=== PATIENT | male | born 1955 | race Caucasian/White ===

== ENCOUNTER 2017-08-29 00:35 | Inpatient (IN) | payer OTHER ==
[~2017-08-29] VITALS: Ht 177.8 cm; Wt 95.1 kg
[2017-08-29] VITALS (10 sets, daily range): BP systolic 114–131; BP diastolic 25–81; PULSE 84–101; RESP 16–20; TEMP 97.5–98.4; O2SAT 95–99
[~2017-08-29 00:35] MED LIST: IBUP-232 PO; LORA-361 PO; MULT1TAB85 PO
[2017-08-29 01:25] LABS: AUTOMATED NEUTROPHIL # 7.3 TH/MM3 (1.8-7.7); BASOPHIL % 0.2 % (0.0-2.0); EOSINOPHIL # 0.1 TH/MM3 (0-0.4); EOSINOPHIL % 1.5 % (0.0-4.0); HEMATOCRIT 48.8 % (39.0-51.0); HEMO FLAGS DIFF FINAL; LYMPH % 13.3 % (9.0-44.0); LYMPHOCYTE # 1.2 TH/MM3 (1.0-4.8); MEAN CELL VOLUME 95.1 FL (80.0-100.0); MEAN CORPUSCULAR HGB CONC 34.7 % (32.0-36.0); MONO % 6.6 % (0.0-8.0); NEUT % 78.4 % (16.0-70.0); PLATELET COUNT 179 TH/MM3 (150-450); RED BLOOD COUNT 5.13 MIL/MM3 (4.50-5.90); RED CELL DISTRIBUTION WIDTH 12.4 % (11.6-17.2); WHITE BLOOD COUNT 9.3 TH/MM3 (4.0-11.0)
--- NOTE | 2017-08-29 01:35 | PD ---
HPI Chief Complaint: Abdominal Pain Time Seen by Provider: 01:00 Travel History International Travel<30 days: No Contact w/Intl Traveler<30days: No Traveled to known affect area: No History of Present Illness HPI Patient is a 62-year-old male with a history of diverticulitis 2000 he had a perforated viscus with diverticulitis had a colostomy with a takedown 5 months later patient then had a hernia at the incision site related to a mesh hernia repair patient got a allergic reaction to the fascia was removed and he was without a mesh for years and then had a recent mesh put in 2001 now is coming in 1 day woke up this morning with dull aching pain hypoumbilical area and left lateral he ignored it he did not take any medication to make it at her or worse he has no daily meds he does not have any allergies to medications throughout the day he said he ate less than normal no vomit or diarrhea no fever no sick contacts since the surgeries for his diverticulitis and colostomy he has not had any problems for over 15 years PFSH Past Medical History Medical History: Denies Significant Hx Diminished Hearing: No Past Surgical History Abdominal Surgery: Yes (COLECTOMY/ colostomy then reversed/ hernia with mesh and removal) Social History Alcohol Use: Yes (OCCASIONALLY) Tobacco Use: No Substance Use: No (PAST MARIJUANA) Allergies-Medications (Allergen,Severity, Reaction): Coded Allergies: No Known Allergies (Unverified Allergy, Unknown, 08/29/17) Reported Meds & Prescriptions Reported Meds & Active Scripts Active No Active Prescriptions or Reported Medications Review of Systems Except as stated in HPI: all other systems reviewed are Neg Gastrointestinal: Positive: Abdominal Pain, No: Vomiting, Diarrhea Physical Exam Narrative GENERAL: Nontoxic-appearing awake alert cooperative SKIN: Focused skin assessment warm/dry. HEAD: Atraumatic. Normocephalic. EYES: Pupils equal and round. No scleral icterus. No injection or drainage. ENT: No nasal bleeding or discharge. Mucous membranes pink and moist. NECK: Trachea midline. No JVD. CARDIOVASCULAR: Regular rate and rhythm. No murmur appreciated. RESPIRATORY: No accessory muscle use. Clear to auscultation. Breath sounds equal bilaterally. GASTROINTESTINAL: Abdomen has midline incision scar well-healed around the periumbilical area soft + periumbilical and left lower abdominal -tender to palpation, nondistended. Hepatic and splenic margins not palpable. MUSCULOSKELETAL: No obvious deformities. No clubbing. No cyanosis. No edema. NEUROLOGICAL: Awake and alert. No obvious cranial nerve deficits. Motor grossly within normal limits. Normal speech. PSYCHIATRIC: Appropriate mood and affect; insight and judgment normal. RE-EXAM still dull ache to Left lower abdominal area which correlates with the CT finding area of dilated loops of bowel and question of early obstruction Data Data Last Documented VS Vital Signs Date Time Temp Pulse Resp B/P (MAP) Pulse Ox O2 Delivery O2 Flow Rate FiO2 08/29/17 04:30 84 16 126/81 (96) 95 Room Air 08/29/17 00:41 97.6 Orders Orders Complete Blood Count With Diff (08/29/17 00:57) Comprehensive Metabolic Panel (08/29/17 00:57) Urinalysis - C+S If Indicated (08/29/17 00:57) Iv Access Insert/Monitor (08/29/17 00:57) Lipase (08/29/17 01:00) Ct Abd/Pel W Iv Contrast(Rout) (08/29/17 ) Pantoprazole Inj (Protonix Inj) (08/29/17 01:45) Ondansetron Inj (Zofran Inj) (08/29/17 01:45) Oral Contrast - Adult (08/29/17 01:33) Diatrizoate Liq ( Gastroview Liq) (08/29/17 01:51) Iohexol 350 Inj (Omnipaque 350 Inj) (08/29/17 03:21) Dext 5%-Nacl 0.45% 1000 Ml Inj (D5w-1/2 (08/29/17 04:30) Morphine Inj (Morphine Inj) (08/29/17 05:00) Ondansetron Inj (Zofran Inj) (08/29/17 05:15) Sodium Chlor 0.9% 1000 Ml Inj (Ns 1000 M (08/29/17 05:15) Admit To Inpatient (08/29/17 ) Vital Signs (Adult) Q4H (08/29/17 05:19) Activity Oob With Assistance (08/29/17 05:19) [employer] / Telemetry .CONTINUOUS (08/29/17 05:19) Intake + Output COLLIN.QSHIFT (08/29/17 05:19) Diet Npo (08/29/17 Breakfast) Sodium Chlor 0.9% 1000 Ml Inj (Ns 1000 M (08/29/17 05:19) Sodium Chloride 0.9% Flush (Ns Flush) (08/29/17 05:30) Sodium Chloride 0.9% Flush (Ns Flush) (08/29/17 09:00) Ondansetron Inj (Zofran Inj) (08/29/17 05:30) Comprehensive Metabolic Panel (08/30/17 06:00) Complete Blood Count With Diff (08/30/17 06:00) Naloxone Inj (Narcan Inj) (08/29/17 05:30) Inpatient Certification (08/29/17 ) Admit Order (Ed Use Only) (08/29/17 05:21) Morphine Inj (Morphine Inj) (08/29/17 05:30) Labs Laboratory Tests Test 08/29/17 01:00 08/29/17 04:00 White Blood Count 9.3 TH/MM3 Red Blood Count 5.13 MIL/MM3 Hemoglobin 16.9 GM/DL Hematocrit 48.8 % Mean Corpuscular Volume 95.1 FL Mean Corpuscular Hemoglobin 33.0 PG Mean Corpuscular Hemoglobin Concent 34.7 % Red Cell Distribution Width 12.4 % Platelet Count 179 TH/MM3 Mean Platelet Volume 6.4 FL Neutrophils (%) (Auto) 78.4 % Lymphocytes (%) (Auto) 13.3 % Monocytes (%) (Auto) 6.6 % Eosinophils (%) (Auto) 1.5 % Basophils (%) (Auto) 0.2 % Neutrophils # (Auto) 7.3 TH/MM3 Lymphocytes # (Auto) 1.2 TH/MM3 Monocytes # (Auto) 0.6 TH/MM3 Eosinophils # (Auto) 0.1 TH/MM3 Basophils # (Auto) 0.0 TH/MM3 CBC Comment DIFF FINAL Differential Comment Blood Urea Nitrogen 17 MG/DL Creatinine 1.07 MG/DL Random Glucose 108 MG/DL Total Protein 7.4 GM/DL Albumin 3.9 GM/DL Calcium Level 8.7 MG/DL Alkaline Phosphatase 78 U/L Aspartate Amino Transf (AST/SGOT) 28 U/L Alanine Aminotransferase (ALT/SGPT) 38 U/L Total Bilirubin 0.8 MG/DL Sodium Level 141 MEQ/L Potassium Level 3.9 MEQ/L Chloride Level 106 MEQ/L Carbon Dioxide Level 29.3 MEQ/L Anion Gap 6 MEQ/L Estimat Glomerular Filtration Rate 70 ML/MIN Lipase 149 U/L Urine Color LIGHT-YELLOW Urine Turbidity CLEAR Urine pH 6.5 Urine Specific [place] 1.043 Urine Protein NEG mg/dL Urine Glucose (UA) NEG mg/dL Urine Ketones NEG mg/dL Urine Occult Blood NEG Urine Nitrite NEG Urine Bilirubin NEG Urine Urobilinogen LESS THAN 2.0 MG/DL Urine Leukocyte Esterase NEG Urine RBC 1 /hpf Urine WBC 1 /hpf Microscopic Urinalysis Comment CULT NOT INDICATED MDM Medical Decision Making Medical Screen Exam Complete: Yes Emergency Medical Condition: Yes Differential Diagnosis Gastritis versus diverticulitis versus obstruction versus pancreatitis Narrative Course Patient's exam seems to be diffuse left lower quadrant tenderness suspicion for diverticulitis exist due to the fact that he had a prior diverticulitis in the past that led to a colostomy and hernia I give him IV Protonix and Zofran he feels better but still has some dull ache CAT scan shows loops of small bowel dilated exactly of the area of his pain and the reading is possible ileus versus early obstruction I decided to admit him IV D5 half-normal conservative management and follow-up in the morning with surgery a limits medicine Diagnosis Primary Impression: Ileus Additional Impression: Small bowel obstruction due to adhesions Admitting Information Admitting Physician Requests: Admit Scripts No Active Prescriptions or Reported Meds Hu Mcclelalnd MD Aug 29, 2017 01:35
[2017-08-29 01:41] LABS: ALKALINE PHOSPHATASE 78 U/L (45-117); ALT (GPT) 38 U/L (12-78); ANION GAP 6 MEQ/L (5-15); AST (GOT) 28 U/L (15-37); BICARBONATE 29.3 MEQ/L (21.0-32.0); BLOOD UREA NITROGEN 17 MG/DL (7-18); CHLORIDE 106 MEQ/L (98-107); GLOMERULAR FILTRATION RATE 70 ML/MIN (>89); POTASSIUM 3.9 MEQ/L (3.5-5.1); SODIUM (NA) 141 MEQ/L (136-145); TOTAL BILIRUBIN ADULT 0.8 MG/DL (0.2-1.0)
[2017-08-29] MEDS ORDERED: ONDANSETRON HCL 4 MG/2 ML VIAL IV PUSH ONE ×2 (01:45→05:15)
[2017-08-29] MEDS ORDERED: PANTOPRAZOLE SODIUM 40 MG VIAL IV PUSH ONE (01:45)
[2017-08-29] MEDS ORDERED: DIATRIZOATE MEGLUM/DIATRIZOATE SOD 9 ML CUP ONE (01:51)
[2017-08-29] MEDS ORDERED: IOHEXOL 350 MG/ML 10 ML VIAL (for RAD DIAG) IVCONTRAST ONE (03:21)
--- NOTE | 2017-08-29 04:04 | RADRPT ---
EXAM DATE/TIME: 08/29/2017 03:06 [facility] COMPARISON: No previous studies available for comparison. INDICATIONS : Bilateral lower quadrant pain with distention. IV CONTRAST: 95 cc Omnipaque 350 (iohexol) IV ORAL CONTRAST: Prescribed oral contrast ingested. RADIATION DOSE: 8.43 CTDIvol (mGy) MEDICAL HISTORY : Diverticulitis. SURGICAL HISTORY : Colostomy. Hernia repair. ENCOUNTER: Initial ACUITY: 1 day PAIN SCALE: 5/10 LOCATION: Bilateral abdomen TECHNIQUE: Volumetric scanning of the abdomen and pelvis was performed. Using automated exposure control and ad justment of the mA and/or kV according to patient size, radiation dose was kept as low as reasonably achievable to obtain optimal diagnostic quality images. DICOM format image data is available electro nically for review and comparison. FINDINGS: Examination of the lung bases demonstrates no abnormality. No pleural fluid is identified. No pulmona ry nodules are present. The liver and spleen are normal in size and no focal defects are identified. There is a single stone within the gallbladder without wall thickening or pericholecystic fluid measu ring 4 mm. The pancreas demonstrates no evidence of mass and there is no dilatation of the pancreatic duct. The adrenal glands are unremarkable. There is a 3 cm left renal cyst present. There are dilate d loops of small bowel the left side of the abdomen which may reflect ileus or obstruction. Examination of the pelvis demonstrates no evidence of free fluid or pelvic mass. No abnormally enlarg ed inguinal or retroperitoneal lymph nodes are present. The bladder is unremarkable. CONCLUSION: Dilated small bowel which may reflect ileus or obstruction. Followup examination is recommended if cl inically indicated. Cholelithiasis Ney Rock MD on August 29, 2017 at 3:57 Board Certified Radiologist. This report was verified electronically.
[2017-08-29] MEDS ORDERED: DEXT 5%-NACL 0.45% 1000 ML INJ 1,000 ML IV SCH (04:30)
[2017-08-29 04:42] LABS: BLOOD, URINE NEG (NEG); GLUCOSE,URINE NEG (NEG); KETONE, URINE NEG (NEG); NITRITE,URINE NEG (NEG); PH, URINE 6.5 (5.0-8.5); URINE COLOR LIGHT-YELLOW (YELLW/STRAW)
[2017-08-29 04:50] LABS: COMMENT (UR) CULT NOT INDICATED; CULTURE IF INDICATED CULT NOT INDICATED
[2017-08-29] MEDS ORDERED: MORPHINE SULFATE 4 MG/ML INJ IV PUSH ONE (05:00)
[2017-08-29] MEDS ORDERED: SODIUM CHLOR 0.9% 1000 ML INJ 1,000 ML IV ONE (05:15)
[2017-08-29] MEDS ORDERED: SODIUM CHLORIDE 0.9% FLUSH 10 ML FLUSH IV FLUSH PRN ×2 (05:30→19:15)
[2017-08-29] MEDS ORDERED: NALOXONE HCL 0.4 MG/ML AMP IV PUSH PRN ×2 (05:30→19:15)
[2017-08-29] MEDS ORDERED: MORPHINE SULFATE 2 MG/ML INJ IV PUSH PRN (05:30)
[2017-08-29] MEDS ORDERED: ONDANSETRON HCL 4 MG/2 ML VIAL IVP PRN (05:30)
[2017-08-29] MEDS: SODIUM CHLOR 0.9% 1000 ML INJ 1,000 ML IV SCH ×2 (06:20→15:35)
[2017-08-29] MEDS: SODIUM CHLORIDE 0.9% FLUSH 10 ML FLUSH IV FLUSH SCH ×2 (07:58→21:00)
--- NOTE | 2017-08-29 08:31 | HHI.HP ---
[facility] Admission Diagnosis ileus vs SBO Diagnoses: (1) Abdominal pain (2) Ileus (3) Small bowel obstruction due to adhesions Chief Complaint: Abdominal pain Travel History International Travel<30 Days: No Contact w/Intl Traveler <30 Da: No Traveled to Known Affected Are: No History of Present Illness The patient is a 62-year-old male who presented to the emergency department with complaints of abdominal pain that started yesterday morning. He has had previous abdominal surgeries, including partial colectomy with colostomy placement and colostomy takedown. He also has had hernia surgery. He reports that the abdominal pain is around the umbilicus. He denies nausea or vomiting. No diarrhea. States that he had a normal bowel movement yesterday at 3 in the afternoon. Now denies flatus. Review of Systems Constitutional: DENIES: Fever, Chills, Night Sweats Eyes: DENIES: Blurred vision, Vision loss Ears, nose, mouth, throat: DENIES: Hearing loss Respiratory: DENIES: Cough, Wheezing, Sputum production, Shortness of breath Cardiovascular: DENIES: Chest pain, Palpitations, Dyspnea on Exertion, Lower Extremity Edema Gastrointestinal: COMPLAINS OF: Abdominal pain, DENIES: Diarrhea, Nausea, Vomiting Genitourinary: DENIES: Urinary frequency, Urinary incontinence, Urgency, Hematuria, Dysuria, Nocturia Musculoskeletal: DENIES: Joint pain, Muscle aches Integumentary: DENIES: Pruritus, Rash Hematologic/lymphatic: DENIES: Bruising Neurologic: DENIES: Headache Past Family Social History Past Medical History History of diverticulitis with perforated viscus Past Surgical History Multiple abdominal surgeries: Partial colectomy secondary to diverticulitis with perforated viscus; colostomy; colostomy takedown; hernia repair Reported Medications None Allergies: Coded Allergies: No Known Allergies (Unverified Allergy, Unknown, 08/29/17) Family History Mother and brother both have had diverticulitis Social History Denies alcohol, tobacco, or illicit drug use. Physical Exam Vital Signs Vital Signs Date Time Temp Pulse Resp B/P (MAP) Pulse Ox O2 Delivery O2 Flow Rate FiO2 08/29/17 07:57 98.1 86 20 131/77 (95) 96 Room Air 08/29/17 04:30 84 16 126/81 (96) 95 Room Air 08/29/17 02:00 90 16 117/75 (89) 97 Room Air 08/29/17 00:56 87 16 125/71 (89) 98 Room Air 08/29/17 00:41 97.6 89 16 124/58 (80) 99 Room Air Physical Exam GENERAL: Well-nourished, well-developed male in no acute distress. HEENT: Normocephalic, atraumatic. Pupils equal, round and reactive. Extraocular movements intact. No scleral icterus. No injection or drainage. Oropharynx is clear. Mucous membranes are moist. CARDIOVASCULAR: Regular rate and rhythm without murmurs, gallops, or rubs. RESPIRATORY: Clear to auscultation. No wheezes, rales, or rhonchi. Breathing is non-labored. GASTROINTESTINAL: Abdomen soft, tender to palpation in the periumbilical region without rebound or guarding, nondistended. Well-healed surgical scars are noted. EXTREMITIES: No lower extremity edema. No calf tenderness. PSYCH: Alert and oriented x 3. Laboratory Laboratory Tests Test 08/29/17 01:00 08/29/17 04:00 White Blood Count 9.3 Red Blood Count 5.13 Hemoglobin 16.9 Hematocrit 48.8 Mean Corpuscular Volume 95.1 Mean Corpuscular Hemoglobin 33.0 Mean Corpuscular Hemoglobin Concent 34.7 Red Cell Distribution Width 12.4 Platelet Count 179 Mean Platelet Volume 6.4 Neutrophils (%) (Auto) 78.4 Lymphocytes (%) (Auto) 13.3 Monocytes (%) (Auto) 6.6 Eosinophils (%) (Auto) 1.5 Basophils (%) (Auto) 0.2 Neutrophils # (Auto) 7.3 Lymphocytes # (Auto) 1.2 Monocytes # (Auto) 0.6 Eosinophils # (Auto) 0.1 Basophils # (Auto) 0.0 CBC Comment DIFF FINAL Differential Comment Blood Urea Nitrogen 17 Creatinine 1.07 Random Glucose 108 Total Protein 7.4 Albumin 3.9 Calcium Level 8.7 Alkaline Phosphatase 78 Aspartate Amino Transf (AST/SGOT) 28 Alanine Aminotransferase (ALT/SGPT) 38 Total Bilirubin 0.8 Sodium Level 141 Potassium Level 3.9 Chloride Level 106 Carbon Dioxide Level 29.3 Anion Gap 6 Estimat Glomerular Filtration Rate 70 Lipase 149 Urine Color LIGHT-YELLOW Urine Turbidity CLEAR Urine pH 6.5 Urine Specific [place] 1.043 Urine Protein NEG Urine Glucose (UA) NEG Urine Ketones NEG Urine Occult Blood NEG Urine Nitrite NEG Urine Bilirubin NEG Urine Urobilinogen LESS THAN 2.0 Urine Leukocyte Esterase NEG Urine RBC 1 Urine WBC 1 Microscopic Urinalysis Comment CULT NOT INDICATED Result Diagram: 08/29/179908/29/17 0100 Imaging Last Impressions Abdomen/Pelvis CT 08/29/17 0000 Signed Impressions: Service Date/Time: , August 29, 2017 03:06 - CONCLUSION: Dilated small bowel which may reflect ileus or obstruction. Followup examination is recommended if clinically indicated. Cholelithiasis MD Cat Castellanos VTE Risk Assessment Cat VTE Risk Assessment: Mod/High Risk (score >= 2) Marcii Risk Assessment Model Point Value = 1 Point Value = 2 Point Value = 3 Point Value = 5 Age 41-60 Minor surgery BMI > 25 kg/m2 Swollen legs Varicose veins or History of unexplained or recurrent spontaneous Oral contraceptives or hormone replacement Sepsis (< 1 month) Serious lung disease, including pneumonia (< 1 month) Abnormal pulmonary function Acute myocardial infarction Congestive heart failure (< 1 month) History of inflammatory bowel disease Medical patient at bed rest Age 61-74 Arthroscopic surgery Major open surgery (> 45 min) Laparoscopic surgery (> 45 min) Malignancy Confined to bed (> 72 hours) Immobilizing plaster cast Central venous access Age >= 75 History of VTE Family history of VTE Factor V Leiden Prothrombin 14028C Lupus anticoagulant Anticardiolipin antibodies Elevated serum homocysteine Heparin-induced thrombocytopenia Other congenital or acquired thrombophilia Stroke (< 1 month) Elective arthroplasty Hip, pelvis, or leg fracture Acute spinal cord injury (< 1 month) Prophylaxis Regimen Total Risk Factor Score Risk Level Prophylaxis Regimen 0-1 Low Early ambulation 2 Moderate Order ONE of the following: *Sequential Compression Device (SCD) *Heparin 5000 units SQ BID 3-4 Higher Order ONE of the following medications: *Heparin 5000 units SQ TID *Enoxaparin/Lovenox 40 mg SQ daily (WT < 150 kg, CrCl > 30 mL/min) *Enoxaparin/Lovenox 30 mg SQ daily (WT < 150 kg, CrCl > 10-29 mL/min) *Enoxaparin/Lovenox 30 mg SQ BID (WT < 150 kg, CrCl > 30 mL/min) AND/OR *Sequential Compression Device (SCD) 5 or more Highest Order ONE of the following medications: *Heparin 5000 units SQ TID (Preferred with Epidurals) *Enoxaparin/Lovenox 40 mg SQ daily (WT < 150 kg, CrCl > 30 mL/min) *Enoxaparin/Lovenox 30 mg SQ daily (WT < 150 kg, CrCl > 10-29 mL/min) *Enoxaparin/Lovenox 30 mg SQ BID (WT < 150 kg, CrCl > 30 mL/min) AND *Sequential Compression Device (SCD) Assessment and Plan Assessment and Plan 1. Abdominal pain, ileus, possible bowel obstruction: Patient has had multiple abdominal surgeries and likely has adhesions. He had a normal bowel movement yesterday, but has not had flatus today. Keep nothing by mouth. Continue IV fluids, pain medication. Consult patient's colorectal surgeon, Dr. Simpson. 2. DVT prophylaxis: Heparin, SCDs, CHRISTINE cabrales. Kilo Bains MD Aug 29, 2017 08:31
[2017-08-29] MEDS ORDERED: KETOROLAC TROMETHAMINE 30 MG/ML (IVP) VIAL IV PUSH PRN (09:30)
[2017-08-29] MEDS: HEPARIN SODIUM - SQ 10,000 UNITS/ML VIAL SQ SCH ×2 (14:53→21:26)
[2017-08-29] MEDS ORDERED: D5-LR + KCL 20 MEQ INJ 1,000 ML IV SCH (19:02)
[2017-08-29] MEDS ORDERED: BENZOCAINE 6 MG/MENTHOL 10 MG LOZENGE SUCK-ON PRN (19:15)
[2017-08-29] MEDS ORDERED: POTASSIUM CHLOR 40 MEQ PREMIX 100 ML IV PRN (19:15)
[2017-08-29] MEDS ORDERED: ZOLPIDEM TARTRATE 5 MG TAB PO PRN (19:15)
[2017-08-29] MEDS ORDERED: metroNIDAZOLE 500 MG INJ 100 ML IV SCH (19:15)
[2017-08-29] MEDS ORDERED: ONDANSETRON HCL 4 MG/2 ML VIAL IV PUSH PRN (19:15)
[2017-08-29] MEDS ORDERED: MORPHINE SULFATE 30 MG/30 ML PCA IV SCH (19:15)
[2017-08-29] MEDS ORDERED: KETOROLAC TROMETHAMINE 30 MG/ML (IVP) VIAL IVP PRN (19:15)
[2017-08-29] MEDS ORDERED: ACETAMINOPHEN/HYDROcodone 325 MG/5 MG TAB PO PRN ×2 (19:15)
[2017-08-29] MEDS ORDERED: ceFAZolin 2 GM PREMIX 50 ML IV SCH (19:15)
[2017-08-29] MEDS ORDERED: Post-op Orders (for Pharmacy) MISC XX ONE (19:15)
[2017-08-29] MEDS ORDERED: ENALAPRILAT 1.25 MG/ML VIAL IV PUSH PRN (19:15)
[2017-08-29] MEDS ORDERED: POTASSIUM CHLOR 20 MEQ PREMIX 100 ML IV PRN (19:15)
[2017-08-29] MEDS ORDERED: SODIUM CHLORIDE 0.9% FLUSH 10 ML FLUSH IV FLUSH SCH (21:00)
[2017-08-29] MEDS ORDERED: FUROSEMIDE 20 MG/2 ML VIAL IV PUSH SCH (21:00)
[2017-08-29] MEDS ORDERED: PCA - TOTAL MG MORPHINE DELIVERED PER SHIFT SCH (22:00)
[2017-08-30] VITALS: BP 114/73; PULSE 99; RESP 20; TEMP 98.2; O2SAT 97
[2017-08-30] MEDS ORDERED: METOCLOPRAMIDE HCL 10 MG/2 ML VIAL IVS SCH
[2017-08-30] MEDS: SODIUM CHLOR 0.9% 1000 ML INJ 1,000 ML IV SCH (00:16)
[2017-08-30 04:00] VITALS: BP 112/64; PULSE 89; RESP 20; TEMP 98.3; O2SAT 98
--- NOTE | 2017-08-30 05:40 | MB ---
cc: RAVINDRA CASTRO,AYAH Rios M.D. DATE OF CONSULTATION 08/29/2017 CHIEF COMPLAINT Abdominal pain. HISTORY OF PRESENT ILLNESS This patient was admitted to hospital this morning to the hospitalist service with a one-day history of abdominal distension and pain, no nausea or vomiting but no bowel motions either. The patient is well-known to me. I just did a colonoscopy on him about 2 months ago for his normal screening. Several years ago the patient developed a perforated diverticulitis and had an emergency surgery elsewhere with a colostomy, Teresa pouch and colostomy closure. Since that time he has had really no problems until this. PAST MEDICAL HISTORY, FAMILY HISTORY, SOCIAL HISTORY, REVIEW OF SYSTEMS Otherwise negative. PHYSICAL EXAMINATION GENERAL: Well-developed, well-nourished male in no acute distress. SKIN: Warm and dry. HEENT: Extraocular muscles intact. NECK: Supple. ABDOMEN: Soft, nontender. No masses. RECTAL: Exam not done. IMAGING STUDIES The CT scan shows distended small bowel, especially on the left side, possibly small bowel obstruction versus ileus. IMPRESSION Partial small bowel obstruction or ileus which is apparently clearing now since he is passing copious amounts of flatus and his abdominal distension is now gone and he is not having any pain. He has not had any stools. PLAN I will order abdominal x-ray early in the morning and make sure that this has improved and the contrast has passed and resume his diet and discharge him in the morning if he is doing well. MD SOO Maxwell/JOSE /8:08 PM /5:36 AM
[2017-08-30] MEDS: HEPARIN SODIUM - SQ 10,000 UNITS/ML VIAL SQ SCH (05:48)
--- NOTE | 2017-08-30 06:39 | HHI.PR ---
Subjective Remarks No N or V. No BMs but flatus. No pain or distention. AxR not done yet this AM as ordered 6AM Objective Vital Signs Date Time Temp Pulse Resp B/P (MAP) Pulse Ox O2 Delivery O2 Flow Rate FiO2 08/30/17 04:00 98.3 89 20 112/64 (80) 98 08/30/17 00:00 98.2 99 20 114/73 (87) 97 08/29/17 20:15 101 08/29/17 20:15 Room Air 08/29/17 20:00 98.4 93 20 118/64 (82) 98 08/29/17 17:18 Room Air 08/29/17 16:00 98.0 91 16 122/64 (83) 99 08/29/17 15:17 86 08/29/17 14:56 Room Air 08/29/17 12:41 Room Air 08/29/17 12:00 97.5 88 16 114/68 (83) 97 08/29/17 11:01 08/29/17 09:30 20 08/29/17 07:57 98.1 86 20 131/77 (95) 96 Room Air I/O 08/29/17 08/29/17 08/29/17 08/30/17 08/30/17 08/30/17 07:00 15:00 23:00 07:00 15:00 23:00 Intake Total 1098 ml 0 ml 1000 ml Output Total 600 ml 225 ml Balance 1098 ml -600 ml 775 ml Intake Oral 0 ml IV Total 1098 ml 1000 ml Output Urine Total 600 ml 225 ml # Voids 1 # Bowel Movements 0 Result Diagram: 08/29/179908/29/1799 Objective Remarks VS-S Abd: soft,flat, non tender Assessment and Plan Assessment and Plan Stable. Resolved Ileus vs SBO Plan: Reg diet,await AxR. D/C this AM Jong Simpson MD Aug 30, 2017 06:39
[2017-08-30 07:00] VITALS: BP 120/75; PULSE 83; RESP 13; TEMP 98.3; O2SAT 95
[2017-08-30 08:37] LABS: AUTOMATED NEUTROPHIL # 3.2 TH/MM3 (1.8-7.7); BASOPHIL % 0.1 % (0.0-2.0); EOSINOPHIL # 0.1 TH/MM3 (0-0.4); EOSINOPHIL % 2.6 % (0.0-4.0); HEMATOCRIT 40.4 % (39.0-51.0); HEMO FLAGS DIFF FINAL; LYMPH % 25.1 % (9.0-44.0); LYMPHOCYTE # 1.3 TH/MM3 (1.0-4.8); MEAN CORPUSCULAR HEMOGLOBIN 33.7 PG (27.0-34.0); MEAN CORPUSCULAR HGB CONC 35.4 % (32.0-36.0); MONO % 7.5 % (0.0-8.0); NEUT % 64.7 % (16.0-70.0); PLATELET COUNT 152 TH/MM3 (150-450); RED BLOOD COUNT 4.25 MIL/MM3 (4.50-5.90); RED CELL DISTRIBUTION WIDTH 12.8 % (11.6-17.2)
[2017-08-30] MEDS ORDERED: PANTOPRAZOLE SODIUM 40 MG VIAL IVP SCH (09:00)
--- NOTE | 2017-08-30 09:01 | HHI.PR ---
Subjective Remarks feeling better, no abdominal pain, nausea or vomiting passing lots of flatus Objective Vitals Vital Signs Date Time Temp Pulse Resp B/P (MAP) Pulse Ox O2 Delivery O2 Flow Rate FiO2 08/30/17 07:00 98.3 83 13 120/75 (90) 95 08/30/17 04:00 98.3 89 20 112/64 (80) 98 08/30/17 00:00 98.2 99 20 114/73 (87) 97 08/29/17 20:15 101 08/29/17 20:15 Room Air 08/29/17 20:00 98.4 93 20 118/64 (82) 98 08/29/17 17:18 Room Air 08/29/17 16:00 98.0 91 16 122/64 (83) 99 08/29/17 15:17 86 08/29/17 14:56 Room Air 08/29/17 12:41 Room Air 08/29/17 12:00 97.5 88 16 114/68 (83) 97 08/29/17 11:01 08/29/17 09:30 20 I/O 08/29/17 08/29/17 08/29/17 08/30/17 08/30/17 08/30/17 07:00 15:00 23:00 07:00 15:00 23:00 Intake Total 1098 ml 0 ml 1000 ml Output Total 600 ml 225 ml Balance 1098 ml -600 ml 775 ml Intake Oral 0 ml IV Total 1098 ml 1000 ml Output Urine Total 600 ml 225 ml # Voids 1 # Bowel Movements 0 Result Diagram: 08/30/17 0545 08/29/17 0100 Imaging Last Impressions Abdomen X-Ray 08/30/17 0600 Signed Impressions: Service Date/Time: Wednesday, August 30, 2017 08:27 - CONCLUSION: Negative for obstruction. Gurjit Vernon MD FACR Abdomen/Pelvis CT 08/29/17 0000 Signed Impressions: Service Date/Time: August 03:06 - CONCLUSION: Dilated small bowel which may reflect ileus or obstruction. Followup examination is recommended if clinically indicated. Cholelithiasis Ney Rock MD Last Impressions Abdomen/Pelvis CT 08/29/17 0000 Signed Impressions: Service Date/Time: August 03:06 - CONCLUSION: Dilated small bowel which may reflect ileus or obstruction. Followup examination is recommended if clinically indicated. Cholelithiasis Ney Rock MD Objective Remarks awake and alert, oriented x 3 anicteric lungs clear regular rhythm abdomen- soft, good bowel sounds, no guarding or rigidity, well healed scars extremities no edema A/P Problem List: (1) Abdominal pain ICD Code: R10.9 - Unspecified abdominal pain (2) Ileus ICD Code: K56.7 - Ileus, unspecified Status: Acute (3) Small bowel obstruction due to adhesions ICD Code: K56.50 - Intestinal adhesions [bands], unspecified as to partial versus complete obstruction Status: Acute Assessment and Plan 62 years old male with multiple abdominal surgeries- ruptured colon s/p resection, incisional hernia s/prese tion and mesh- which got infected hsitory of recuurent episodes of SBP treated conservatively 1. Abdominal pain likely partial bowel obstruction- resolved - diet advance. Repeat Xrays ordered if continues to improve- DC home today OP ff up with CRS- known very well to Dr. Simpson up and ambulating just now 10 am- had a good BM xrays reviewed- normal- no signs of obstruction DC home today OP ff up with PCP diet as toelrated- regular activity - Terrance Alberto MD Aug 30, 2017 09:01
[2017-08-30] MEDS: SODIUM CHLORIDE 0.9% FLUSH 10 ML FLUSH IV FLUSH SCH (09:13)
--- NOTE | 2017-08-30 09:14 | RADRPT ---
EXAM DATE/TIME: 08/30/2017 08:27 [facility] COMPARISON: No previous studies available for comparison. INDICATIONS : Evaluate for small bowel obstruction. MEDICAL HISTORY : Diverticulitis. SURGICAL HISTORY : Colostomy. Hernia repair. ENCOUNTER: Subsequent ACUITY: 1 day PAIN SCORE: 0/10 LOCATION: Abdomen. FINDINGS: Moderate stool is seen throughout the colon. Contrast is seen adjacent and transverse colon. The th ere is no small bowel dilatation or free air. CONCLUSION: Negative for obstruction. Gurjit Vernon MD FACR on August 30, 2017 at 8:58 Board Certified Radiologist. This report was verified electronically.
[2017-08-30 09:59] LABS: ALKALINE PHOSPHATASE 60 U/L (45-117); ALT (GPT) 23 U/L (12-78); ANION GAP 10 MEQ/L (5-15); AST (GOT) 21 U/L (15-37); BICARBONATE 23.4 MEQ/L (21.0-32.0); BLOOD UREA NITROGEN 11 MG/DL (7-18); CHLORIDE 111 MEQ/L (98-107); GLOMERULAR FILTRATION RATE 93 ML/MIN (>89); SODIUM (NA) 144 MEQ/L (136-145); TOTAL BILIRUBIN ADULT 0.6 MG/DL (0.2-1.0)
[2017-08-30] MEDS ORDERED: ALVIMOPAN 12 MG CAPSULE PO SCH (21:00)
== END 2017-08-30 11:33 | disposition home or self-care (01) | DRG 389 ==
LOC: NEPC 00:35 → NEDA 05:24 → NEDH 10:10 → N04A 10:54
PROVIDERS: ADMIT Internal Medicine; ATTEND Internal Medicine
DX: K56.51 Intestinal adhesions [bands], with partial obstruction (principal); K57.80 Diverticulitis of intestine, part unspecified, with perforation and abscess without bleeding; K43.2 Incisional hernia without obstruction or gangrene; K56.7 Ileus, unspecified; K80.20 Calculus of gallbladder without cholecystitis without obstruction
CPT/HCPCS: 74020; 74177; 80053; 81001; 83690; 85025; 94150; 96374; 96375; 96376; C9113; J1644; J1885; J2270; J2405; J7030; Q9963; Q9967